=== PATIENT | male | born 1945 | race Caucasian/White ===

== ENCOUNTER 2024-10-18 07:46 | Inpatient (IN) ==
--- NOTE | 2024-10-18 08:05 | Emergency Department Note ---
Impression & Plan Bilateral leg weakness, Elevated blood pressure reading ED Provider Note NAME: CARLI HALEY AGE: 79 SEX: M : 1945 ARRIVES VIA: Ambulance INFORMANT: Patient ED PROVIDER(S): Anson Leiva DO CHIEF COMPLAINT: Weakness in his bilateral legs HPI: Patient is a 79-year-old male who presents to the ER for weakness mainly in his bilateral legs. He notes this started last night around 830. He noticed some trouble walking and getting around. He was not dizzy or lightheaded. He denies any head pain or neck pain. No change or loss of vision. No chest pain or shortness of breath. No cough or congestion. No dysuria, urgency or frequency. No focal weakness in 1 leg or arm. He notes his legs just feel weaker than usual. He denies any back pain. No other exacerbating or remitting factors. He called EMS as he did not feel he could walk. ADDITIONAL HISTORY OBTAINED: Per HPI Chronic Medical/Social Conditions Affecting Care: Per HPI PAST MEDICAL HISTORY:See Below PAST SURGICAL HISTORY:See Below FAMILY HISTORY:See Below SOCIAL HISTORY:See Below HOME MEDICATIONS:See Below ALLERGIES:See Below VITALS:See Below PHYSICAL EXAMINATION: GENERAL: Sitting up in bed, alert, well appearing, well nourished, no distress, non-toxic EYE EXAM: normal conjunctiva. PERRL and EOM's grossly intact. OROPHARYNX: no exudate, no erythema, lips, buccal mucosa, and tongue normal and mucous membranes are moist NECK: supple, no nuchal rigidity, no adenopathy, non-tender LUNGS: Clear to auscultation. Normal chest wall mechanics HEART: no murmurs, S1 normal and S2 normal ABDOMEN: abdomen soft, non-tender, normo-active bowel sounds, no masses, no rebound or guarding. BACK: Back is symmetrical on inspection and there is no deformity, no midline tenderness, no CVA tenderness. UPPER EXTREMITIES: upper extremities are grossly normal. LOWER EXTREMITIES: Flexion and extension of the hips, knees, ankles, and EHL 5/5 bilaterally. Gross sensation is intact. DPs are 2/4 bilateral. Patellar and Achilles reflexes are 2/4 bilateral NEURO EXAM: Normal sensorium, cranial nerves II-XII intact, normal speech, no weakness of arms, no weakness of legs. No drift. Finger to nose intact. Gross sensation intact. Oeno-lx-jlgn intact. Rapid alternating movements of upper extremities intact. MEDICAL DECISION MAKING: Patient is a 79-year-old male who presents ER for weakness in the bilateral lower extremities. IV was established and blood work was obtained. Labs show no significant leukocytosis or anemia. BMP along LFTs bilirubin and mag were unremarkable. UA was clean. Tox was negative. Viral panel negative. Chest x- ray and CT of the head was negative. Patient was ambulated and he had significant difficulty consequently case was discussed with the hospitalist for further evaluation management treatment. He has no back pain. Nothing to suggest cauda equina. He was given IV fluids while in the ER. Consults/Care Managements Discussions: Per [facility] Triage Nursing notes reviewed. Limited review of prior medical records performed Vital Signs: reviewed and remarkable for no significant abnormalities Differential diagnosis: Infection, dehydration, metabolic abnormality, hypo/hyperglycemia, electrolyte disturbance, anemia, hypoxia, cardiac sources, intracerebral event, toxicologic, neurologic, as well as other pathologies. ER treatment provided: See below Diagnostics interpreted by me include EKG and cardiac monitoring as listed below: -Cardiac Monitoring: An order was placed for continuous cardiac monitoring. The monitor shows a rate of with [] rhythm. -ECG: Sinus rhythm rate of 73 PVCs present QTc 456 -Laboratory studies:Interpreted by me as stated above in MDM and shown below. Imaging studies: Xrays: As interpreted by me: Portable AP upright 1 view of the chest shows no focal infiltrate CTs show: CT of the head was negative per radiology Procedures:none Critical Care: None Past Med/Surg History Problem List (Updated 10/18/24 @ 13:19 by Anson Leiva DO) Elevated blood pressure reading (Acute) Alcohol use disorder Bilateral leg weakness (Acute) Medical History (Updated 10/18/24 @ 13:19 by Anson Leiva DO) Tobacco use Quit 2023, 75 pack-years History of diverticulitis Surgical History (Updated 10/18/24 @ 11:09 by Eric Lewis MD) History of cataract surgery Bilateral History of appendectomy Social History Smoking Status: Former smoker Tobacco Type: Cigarettes Feels Safe at Home: Yes Allergies Allergies Allergy/AdvReac Type Severity Reaction Status Date / Time No Known Allergies Allergy Unverified 10/18/24 10:16 Home Meds Home Medications Medication Instructions Recorded Confirmed ibuprofen 200 mg tablet (Advil) 400 mg PO Q6H PRN Pain 01/05/24 10/18/24 Results & Data (ED) Vital Signs Vital Signs - 24 hr 10/18/24 07:46 10/18/24 07:59 10/18/24 08:02 Temperature 36.7 C Temperature Source Oral Pulse Rate 76 74 76 Pulse Rate from SpO2 Sensor 71 Pulse Rhythm Regular Respiratory Rate 21 23 21 Respiratory Effort / Characteristics Non-Labored Respiratory Depth Normal Respiratory Pattern Regular Blood Pressure 183/97 H 183/97 H Blood Pressure Mean 125 148 Pulse Oximetry 94 93 94 Oxygen Delivery Method Room Air Room Air Sepsis Recent Fever Within 48 Hours No Sepsis New/Unexplained Change in Mental Status N/A Sepsis Action Taken by Nursing No Action Required 10/18/24 08:12 10/18/24 08:24 10/18/24 08:33 Temperature Temperature Source Pulse Rate 80 67 73 Pulse Rate from SpO2 Sensor 68 70 Pulse Rhythm Respiratory Rate 17 17 Respiratory Effort / Characteristics Respiratory Depth Respiratory Pattern Blood Pressure 191/98 H 171/99 H Blood Pressure Mean 129 123 Pulse Oximetry 92 92 Oxygen Delivery Method Sepsis Recent Fever Within 48 Hours Sepsis New/Unexplained Change in Mental Status Sepsis Action Taken by Nursing 10/18/24 09:30 10/18/24 10:00 10/18/24 10:30 Temperature Temperature Source Pulse Rate 83 75 75 Pulse Rate from SpO2 Sensor 75 78 Pulse Rhythm Respiratory Rate 17 18 20 Respiratory Effort / Characteristics Respiratory Depth Respiratory Pattern Blood Pressure 175/91 H 157/78 H 164/98 H Blood Pressure Mean 119 104 120 Pulse Oximetry 92 91 91 Oxygen Delivery Method Sepsis Recent Fever Within 48 Hours Sepsis New/Unexplained Change in Mental Status Sepsis Action Taken by Nursing 10/18/24 10:57 10/18/24 11:36 10/18/24 12:01 Temperature Temperature Source Pulse Rate 78 72 80 Pulse Rate from SpO2 Sensor 81 Pulse Rhythm Respiratory Rate 25 H 15 18 Respiratory Effort / Characteristics Respiratory Depth Respiratory Pattern Blood Pressure 181/102 H 186/116 H 177/81 H Blood Pressure Mean 128 139 126 Pulse Oximetry 91 92 Oxygen Delivery Method Sepsis Recent Fever Within 48 Hours Sepsis New/Unexplained Change in Mental Status Sepsis Action Taken by Nursing 10/18/24 12:30 Temperature Temperature Source Pulse Rate 80 Pulse Rate from SpO2 Sensor Pulse Rhythm Respiratory Rate Respiratory Effort / Characteristics Respiratory Depth Respiratory Pattern Blood Pressure Blood Pressure Mean Pulse Oximetry Oxygen Delivery Method Sepsis Recent Fever Within 48 Hours Sepsis New/Unexplained Change in Mental Status Sepsis Action Taken by Nursing Laboratory Data 10/18/24 08:00 10/18/24 08:00 Lab Results 10/18/24 10/18/24 10/18/24 Range/Units 08:00 08:10 09:40 WBC 6.92 (4.8-10.8) K/ul RBC 4.58 L (4.70-6.10) M/uL Hgb 16.0 (14.0-18.0) g/dl Hct 44.6 (42.0-52.0) % MCV 97.4 (80.0-100.0) fL MCH 34.9 H (25.0-34.0) pg MCHC 35.9 (32.0-36.0) g/dL RDW Std Deviation 45.2 (36.4-46.3) fL RDW Coeff of Cortez 12.7 (11.5-14.5) % Plt Count 218 (130-400) K/uL MPV 8.9 L (9.4-12.4) fL Immature Gran % (Auto) 0.4 % Neut % (Auto) 76.1 % Lymph % (Auto) 16.2 % Mcleod % (Auto) 5.3 % Eos % (Auto) 1.7 % Baso % (Auto) 0.3 % Neut # (Auto) 5.26 (1.40-6.50) K/uL Lymph # (Auto) 1.12 L (1.20-3.40) K/uL Mcleod # (Auto) 0.37 (0.11-0.59) K/uL Eos # (Auto) 0.12 (0.00-0.50) K/uL Baso # (Auto) 0.02 (0.00-0.20) K/uL Immature Gran # (Auto) 0.03 (0.01-0.20) K/uL Sodium 138 (136-145) mmol/L Potassium 4.0 (3.5-5.1) mmol/L Chloride 104 (98-107) mmol/L Carbon Dioxide 26 (21-32) mmol/L Anion Gap 8 (3-11) BUN 15 (6-23) mg/dl Creatinine 0.91 (0.6-1.4) mg/dl Est Cr Clr Drug Dosing 87.3 ml/min eGFR 86.81 BUN/Creatinine Ratio 16.5 (10-20) Glucose 112 H (70-99(Fasting)) mg/dl Calcium 9.5 (8.6-10.3) mg/dl Magnesium 2.0 (1.7-2.4) mg/dl Total Bilirubin 0.7 (0.2-1.0) mg/dl AST 19 (13-39) U/L ALT 18 (7-52) U/L Alkaline Phosphatase 60 (34-104) U/L Total Protein 7.2 (6.0-8.3) gm/dl Albumin 4.2 (3.4-5.0) gm/dl Globulin 3.0 (2.5-4.0) gm/dl Albumin/Globulin Ratio 1.4 (0.9-2) Lipase 30 (11-82) U/L Vitamin B12 (180-914) pg/ml TSH 5.242 H (0.300-4.500) uIu/ml Free T4 0.83 (0.61-1.60) ng/dl Urine Color Yellow Urine Appearance Clear (Clear) Urine pH 5.5 (4.5-7.5) Ur Specific [place] 1.020 (1.000-1.030) Urine Protein Negative (Negative) Urine Glucose (UA) Negative (Negative) Urine Ketones 1+ H (Negative) Urine Blood Negative (Negative) Urine Nitrite Negative (Negative) Urine Bilirubin Negative (Negative) Urine Urobilinogen Negative (Negative) Ur Leukocyte Esterase Negative (Negative) Urine Opiates Screen Neg (Neg) Ur Methadone, Qual Neg (Neg) Urine Fentanyl Screen Neg (Neg) Urine Barbiturates Neg (Neg) Ur Phencyclidine (PCP) Neg (Neg) U Amphetamin/Meth Scrn Neg (Neg) MDMA (Ecstasy) Screen Neg (Neg) U Benzodiazepines Scrn Neg (Neg) Ur Cocaine Metabolite Neg (Neg) U Marijuana (THC) Screen Neg (Neg) Adenovirus (PCR) Not Detected (NotDetected) B. pertussis DNA (PCR) Not Detected (NotDetected) B.parapertussis DNA PCR Not Detected (NotDetected) C. pneumoniae DNA (PCR) Not Detected (NotDetected) Coronavirus OC43 (PCR) Not Detected (NotDetected) Coronavirus HKU1 (PCR) Not Detected (NotDetected) Coronavirus 229E (PCR) Not Detected (NotDetected) SARS-CoV-2 (PCR) Not Detected (NotDetected) Coronavirus NL63 (PCR) Not Detected (NotDetected) Human Metapneumovir PCR Not Detected (NotDetected) Influenza Type A (PCR) Not Detected (NotDetected) Influenza Type B (PCR) Not Detected (NotDetected) M. pneumoniae (PCR) Not Detected (NotDetected) Parainfluenza 1 (PCR) Not Detected (NotDetected) Parainfluenza 2 (PCR) Not Detected (NotDetected) Parainfluenza 3 (PCR) Not Detected (NotDetected) Parainfluenza 4 (PCR) Not Detected (NotDetected) RSV (PCR) Not Detected (NotDetected) Entero/Rhino (PCR) Not Detected (NotDetected) 10/18/24 Range/Units 11:18 WBC (4.8-10.8) K/ul RBC (4.70-6.10) M/uL Hgb (14.0-18.0) g/dl Hct (42.0-52.0) % MCV (80.0-100.0) fL MCH (25.0-34.0) pg MCHC (32.0-36.0) g/dL RDW Std Deviation (36.4-46.3) fL RDW Coeff of Cortez (11.5-14.5) % Plt Count (130-400) K/uL MPV (9.4-12.4) fL Immature Gran % (Auto) % Neut % (Auto) % Lymph % (Auto) % Mcleod % (Auto) % Eos % (Auto) % Baso % (Auto) % Neut # (Auto) (1.40-6.50) K/uL Lymph # (Auto) (1.20-3.40) K/uL Mcleod # (Auto) (0.11-0.59) K/uL Eos # (Auto) (0.00-0.50) K/uL Baso # (Auto) (0.00-0.20) K/uL Immature Gran # (Auto) (0.01-0.20) K/uL Sodium (136-145) mmol/L Potassium (3.5-5.1) mmol/L Chloride (98-107) mmol/L Carbon Dioxide (21-32) mmol/L Anion Gap (3-11) BUN (6-23) mg/dl Creatinine (0.6-1.4) mg/dl Est Cr Clr Drug Dosing ml/min eGFR BUN/Creatinine Ratio (10-20) Glucose (70-99(Fasting)) mg/dl Calcium (8.6-10.3) mg/dl Magnesium (1.7-2.4) mg/dl Total Bilirubin (0.2-1.0) mg/dl AST (13-39) U/L ALT (7-52) U/L Alkaline Phosphatase (34-104) U/L Total Protein (6.0-8.3) gm/dl Albumin (3.4-5.0) gm/dl Globulin (2.5-4.0) gm/dl Albumin/Globulin Ratio (0.9-2) Lipase (11-82) U/L Vitamin B12 279 (180-914) pg/ml TSH (0.300-4.500) uIu/ml Free T4 (0.61-1.60) ng/dl Urine Color Urine Appearance (Clear) Urine pH (4.5-7.5) Ur Specific [place] (1.000-1.030) Urine Protein (Negative) Urine Glucose (UA) (Negative) Urine Ketones (Negative) Urine Blood (Negative) Urine Nitrite (Negative) Urine Bilirubin (Negative) Urine Urobilinogen (Negative) Ur Leukocyte Esterase (Negative) Urine Opiates Screen (Neg) Ur Methadone, Qual (Neg) Urine Fentanyl Screen (Neg) Urine Barbiturates (Neg) Ur Phencyclidine (PCP) (Neg) U Amphetamin/Meth Scrn (Neg) MDMA (Ecstasy) Screen (Neg) U Benzodiazepines Scrn (Neg) Ur Cocaine Metabolite (Neg) U Marijuana (THC) Screen (Neg) Adenovirus (PCR) (NotDetected) B. pertussis DNA (PCR) (NotDetected) B.parapertussis DNA PCR (NotDetected) C. pneumoniae DNA (PCR) (NotDetected) Coronavirus OC43 (PCR) (NotDetected) Coronavirus HKU1 (PCR) (NotDetected) Coronavirus 229E (PCR) (NotDetected) SARS-CoV-2 (PCR) (NotDetected) Coronavirus NL63 (PCR) (NotDetected) Human Metapneumovir PCR (NotDetected) Influenza Type A (PCR) (NotDetected) Influenza Type B (PCR) (NotDetected) M. pneumoniae (PCR) (NotDetected) Parainfluenza 1 (PCR) (NotDetected) Parainfluenza 2 (PCR) (NotDetected) Parainfluenza 3 (PCR) (NotDetected) Parainfluenza 4 (PCR) (NotDetected) RSV (PCR) (NotDetected) Entero/Rhino (PCR) (NotDetected) Administered Medications Discontinued Medications Sodium Chloride (Nss) 1,000 mls @ 999 mls/hr IV .Q1H1M ONE Stop: 10/18/24 09:02 Last Infusion: 10/18/24 09:19 Dose: Infused Documented By: Admin: 10/18/24 08:13 Dose: 999 mls/hr Documented By: JESSI Thiamine HCl 500 mg/ Sodium (Chloride) 55 mls @ 210 mls/hr IV NOW STA Stop: 10/18/24 11:54 Last Infusion: 10/18/24 12:16 Dose: Infused Documented By: Admin: 10/18/24 12:00 Dose: 210 mls/hr Documented By: JESSI Imaging Data Radiologist's Impression: Head CT 10/18/24 08:02 CT head/brain wo con CLINICAL HISTORY: weakness. TECHNIQUE: Multiple axial CT images of the head were obtained without contrast. A dose lowering technique was utilized adhering to the principles of ALARA. Sagittal and coronal reconstructions were done. CT DOSE: 625.8 mGy.cm COMPARISON: None FINDINGS: There is no intra-axial or extra-axial fluid collection, hemorrhage, or mass. The ventricular system and sulci are pronounced. There is no midline shift. There is prominent low attenuation in the central nitin and in the periventricular white matter extending into the jaeger radiata. The bone windows are negative. IMPRESSION: No acute intracranial process identified. Senescent atrophy and small vessel insufficiency changes are noted. MRI is more sensitive in detection of a recent stroke. ACT 112: Negative or not required by law. The above report was generated using voice recognition software. It may contain grammatical, syntax or spelling errors. Electronically signed by: Nery Box M.D. 10/18/2024 9:54 AM Chest X-Ray 10/18/24 10:52 XR chest 1V portable CLINICAL HISTORY: hypoxia, generalized weakness COMPARISON STUDY: None FINDINGS: Heart size and pulmonary vasculature are normal. No effusion, consolidation, or pneumothorax. IMPRESSION: No pneumonia seen. ACT 112: Negative or not required by law. Electronically signed by: Octaviano Marquez M.D. 10/18/2024 11:31 AM Discharge Plan Visit Data Chief Complaint: Leg Weakness, Bilateral Stated Complaint: LEG WEAKNESS, UNABLE TO AMBULATE ED Provider: Anson Leiva Discharge Problem: Bilateral leg weakness, Elevated blood pressure reading Forms Stand Alone Forms: [facility] Prescriptions Prescriptions: No Action ibuprofen [Advil] 200 mg Tablet 400 mg PO Q6H PRN (Reason: Pain) Referrals Referrals: PCP,NO [Primary Care Provider] -
[2024-10-18] MEDS: SODIUM CHLORIDE 0.9% 1,000 ML IV ONE (08:13)
[2024-10-18 08:22] LABS: Basophils # (auto) 0.02 K/uL (0.00-0.20); Basophils % (auto) 0.3 %; Eosinophils # (auto) 0.12 K/uL (0.00-0.50); Eosinophils % (auto) 1.7 %; Hematocrit (blood only) 44.6 % (42.0-52.0); Immature Granulocytes # (auto) 0.03 K/uL (0.01-0.20); Immature Granulocytes % (auto) 0.4 %; Lymphocytes # (auto) 1.12 K/uL (1.20-3.40); Lymphocytes % (auto) 16.2 %; Mean Corpuscular Hemoglobin 34.9 pg (25.0-34.0); Mean Corpuscular Hgb Conc 35.9 g/dL (32.0-36.0); Mean Corpuscular Volume 97.4 fL (80.0-100.0); Mean Platelet Volume 8.9 fL (9.4-12.4); Monocytes # (auto) 0.37 K/uL (0.11-0.59); Monocytes % (auto) 5.3 %; Neutrophils # (auto) 5.26 K/uL (1.40-6.50); Neutrophils % (auto) 76.1 %; Platelet Count 218 K/uL (130-400); RDW Coefficient of Variation 12.7 % (11.5-14.5); RDW Standard Deviation 45.2 fL (36.4-46.3); Red Blood Count 4.58 M/uL (4.70-6.10); White Blood Count 6.92 K/ul (4.8-10.8)
[2024-10-18 08:35] LABS: Albumin Globulin Ratio 1.4 (0.9-2); Albumin Level 4.2 gm/dl (3.4-5.0); BUN Creatinine Ratio 16.5 (10-20); Bilirubin,Total 0.7 mg/dl (0.2-1.0); Calcium 9.5 mg/dl (8.6-10.3); Creatinine Clr Calc Pharmacy 87.3 ml/min; Total Protein 7.2 gm/dl (6.0-8.3)
[2024-10-18 09:32] LABS: Adenovirus PCR Not Detected (NotDetected); Bordetella parapertussis PCR Not Detected (NotDetected); Bordetella pertussis PCR Not Detected (NotDetected); Chlamydia pneumoniae PCR Not Detected (NotDetected); Coronavirus 229E PCR Not Detected (NotDetected); Coronavirus CoV-2 (COVID19)PCR Not Detected (NotDetected); Coronavirus HKU1 PCR Not Detected (NotDetected); Coronavirus NL63 PCR Not Detected (NotDetected); Coronavirus OC43PCR Not Detected (NotDetected); Human Metapneumovirus PCR Not Detected (NotDetected); Influenza A PCR Not Detected (NotDetected); Influenza B PCR Not Detected (NotDetected); Mycoplasma pneumoniae PCR Not Detected (NotDetected); Parainfluenza Virus 1 PCR Not Detected (NotDetected); Parainfluenza Virus 2 PCR Not Detected (NotDetected); Parainfluenza Virus 3 PCR Not Detected (NotDetected); Parainfluenza Virus 4 PCR Not Detected (NotDetected); Respiratory Syncytial VirusPCR Not Detected (NotDetected); Rhinovirus/Enterovirus PCR Not Detected (NotDetected)
--- NOTE | 2024-10-18 09:55 | CT Scan Report ---
CT head/brain wo con CLINICAL HISTORY: weakness. TECHNIQUE: Multiple axial CT images of the head were obtained without contrast. A dose lowering tech nique was utilized adhering to the principles of ALARA. Sagittal and coronal reconstructions were don e. CT DOSE: 625.8 mGy.cm COMPARISON: None FINDINGS: There is no intra-axial or extra-axial fluid collection, hemorrhage, or mass. The ventricul ar system and sulci are pronounced. There is no midline shift. There is prominent low attenuation in the central nitin and in the periventricular white matter extending into the jaeger radiata. The bone windows are negative. IMPRESSION: No acute intracranial process identified. Senescent atrophy and small vessel insufficienc y changes are noted. MRI is more sensitive in detection of a recent stroke. ACT 112: Negative or not required by law. The above report was generated using voice recognition software. It may contain grammatical, syntax o r spelling errors. Electronically signed by: Nery Box M.D. 10/18/2024 9:54 AM
[2024-10-18 10:15] LABS: Appearance Urine Clear (Clear); Bilirubin Urine Negative (Negative); Blood Urine Negative (Negative); Color Urine Yellow; Glucose Urine UA Negative (Negative); Ketones Urine 1+ (Negative); Leukocyte Esterase Urine Negative (Negative); Nitrite Urine Negative (Negative); Protein Urine Negative (Negative); Urobilinogen Urine Negative (Negative); pH Urine 5.5 (4.5-7.5)
--- NOTE | 2024-10-18 11:13 | History & Physical Report ---
Date of Service October 18, 2024 Assessment & Plan (1) Bilateral leg weakness: Plan: No cause found on ER workup with normal basic labs and CT head without acute changes. Brisk reflexes on exam therefore do not suspect lower motor neuron issue such as GBS Objectively he is exam is relatively benign with normal power except for left ankle dorsi and plantarflexion, relatively normal coordination however significant shuffling gait causing instability on standing. MRI brain with and without contrast to assess for PRES/cerebellar stroke B1 and B12 level taken - no nystagmus or encephalopathy to suggest Wernicke's however given chronic alcohol use, little harm and potential benefit we will treat for this with high-dose thiamine TSH and magnesium level added Urine drug profile If no definitive etiology with above workup recommend consulting neurology PT/OT evals (2) Alcohol use disorder: Plan: Monitor for withdrawal - no current signs currently, last alcohol drink 10/17 (3) Elevated blood pressure reading: Plan: I suspect this is chronic and at his baseline since he does not seek routine medical care Will hold off on treatment currently unless sBP > 200 or dBP > 110 or PRES on MRI but he should follow up with a PCP for management of this Plan VTE prophylaxis - Lovenox 40 mg subcu daily Diet - heart healthy Disposition - admit to [facility] Admission and Anticipated Discharge Date Admission Date: October 18, 2024 History of Present Illness Chief Complaint: Bilateral lower extremity weakness Primary Care Provider: NO PCP Chetan Valdez is a 79 year old ambidextrous male who presents to the ER with bilateral leg weakness. He does not have a primary care doctor or seek routine care. He started having bilateral leg weakness yesterday at 6 to 8 PM. He thought his legs " fell asleep" last night but was able to make it upstairs however it was not easy. At 4 AM when he got up he could not walk without fall he had a to the bathroom trying to hold onto the sides of the hallway. He feels he is having more of a weakness in his legs rather than coordination problem. No vertigo. No upper extremity weakness or loss of coordination. No changes to vision, speech, hearing. No numbness or pain in his legs. No back pain. No headache, neck stiffness/pain, fever, chills, new respiratory, gastrointestinal or urinary symptoms. He has a chronic productive cough and shortness of breath on exertion which has improved since stopping smoking. He previously smoked 1/2 packs a year for 50 years but quit in the fall 2023. He also drinks alcohol daily, currently 3 glasses of wine per day. He cut back last year and previously was a much heavy drinker with several shots of whiskey a day. He has not had multiple days without alcohol since the . No prior history of withdrawal. He denies any current tremors, anxiety, agitation. His last drink was wine last night. Allergies Allergy/AdvReac Type Severity Reaction Status Date / Time No Known Allergies Allergy Unverified 10/18/24 10:16 Home Medications Medication Instructions Recorded Confirmed Type ibuprofen 200 mg tablet (Advil) 400 mg PO Q6H PRN Pain 01/05/24 10/18/24 History Past Med/Surg History Problem List (Updated 10/18/24 @ 11:49 by Eric Lewis MD) Elevated blood pressure reading Alcohol use disorder Bilateral leg weakness Medical History (Updated 10/18/24 @ 11:49 by Eric Lewis MD) Tobacco use Quit 2023, 75 pack-years History of diverticulitis Surgical History (Updated 10/18/24 @ 11:09 by Eric Lewis MD) History of cataract surgery Bilateral History of appendectomy Social History Smoking Status: Former smoker Tobacco Type: Cigarettes Feels Safe at Home: Yes Review of Systems Review of Systems: All systems reviewed & are unremarkable except as noted in HPI & below Physical Exam Constitutional: WD/WN, vitals as above ENMT: external ear and nose normal, oropharynx normal Respiratory: normal respiratory effort, lungs clear to auscultation + cough Cardiovascular: Rate/Rhythm: regular rate and + irregularly irregular Heart Sounds: no murmur Vessels: posterior tibial pulses present and dorsalis pedis pulses present Extremities: normal capillary refill; no calf tenderness and no pedal edema Gastrointestinal (Abdomen): normal bowel sounds, soft, nontender, no hepatosplenomegaly Neurologic: moves all extremities, + focal motor deficit (4/5 left dorsi/plantarflexion) and awake; not confused Speech / Cognition: normal speech Motor/Sensory: no tremor and no pronator drift Cranial Nerves: PERRL, EOM intact bilaterally, normal facial strength, tongue midline, able to rotate head bilaterally, able to elevate shoulders bilaterally, no nystagmus and symmetric palate elevation Gait: + shuffling gait Coordination: normal miqgan-rw-[id number] test and normal awob-fv-tjov test Psychiatric: A+Ox3, euthymic affect Results & Data Results & Data Vital Signs (Past 12 Hours) Vital Signs Temp Pulse Resp BP Pulse Ox O2 Del Method 10/18/24 10:30 75 20 164/98 H 91 10/18/24 10:00 75 18 157/78 H 91 10/18/24 09:30 83 17 175/91 H 92 10/18/24 08:33 73 17 171/99 H 92 10/18/24 08:24 67 10/18/24 08:12 80 17 191/98 H 92 10/18/24 08:02 76 21 94 Room Air 10/18/24 07:59 74 23 183/97 H 93 10/18/24 07:46 36.7 C 76 21 183/97 H 94 Room Air Laboratory Results Abnormal lab results 10/18/24 10/18/24 Range/Units 08:00 09:40 RBC 4.58 L (4.70-6.10) M/uL MCH 34.9 H (25.0-34.0) pg MPV 8.9 L (9.4-12.4) fL Lymph # (Auto) 1.12 L (1.20-3.40) K/uL Glucose 112 H (70-99(Fasting)) mg/dl Urine Ketones 1+ H (Negative) Diagnostic Findings CT head/brain wo con CLINICAL HISTORY: weakness. TECHNIQUE: Multiple axial CT images of the head were obtained without contrast. A dose lowering technique was utilized adhering to the principles of ALARA. Sagittal and coronal reconstructions were done. CT DOSE: 625.8 mGy.cm COMPARISON: None FINDINGS: There is no intra-axial or extra-axial fluid collection, hemorrhage, or mass. The ventricular system and sulci are pronounced. There is no midline shift. There is prominent low attenuation in the central nitin and in the periventricular white matter extending into the jaeger radiata. The bone windows are negative. IMPRESSION: No acute intracranial process identified. Senescent atrophy and small vessel insufficiency changes are noted. MRI is more sensitive in detection of a recent stroke. Medications Administered ER medications given: Normal saline 1 L bolus ECG Rate (beats per minute): 73 Rhythm: normal sinus Findings: + other (Premature supraventricular complexes) and + PVC Comparison ECG Date: from (January 05, 2024) Change: the following changes noted (Premature supraventricular complexes now present) Code Status & VTE Plan Code Status Full VTE Prophylaxis Plan VTE Prophylaxis will be ordered: Yes PG Care Time/CCT Total # of Minutes Spent Total Time Spent with Patient: Total time spent is greater than 50% in coordination of care (as documented) at patient's floor/unit and/or counseling patient: Coding Level of Care Code 36236 INT INP/OBS CARE 3/75MIN Diagnoses Bilateral leg weakness R29.898 Alcohol use disorder F10.90 Elevated blood pressure reading R03.0
--- NOTE | 2024-10-18 11:33 | XRay Report ---
XR chest 1V portable CLINICAL HISTORY: hypoxia, generalized weakness COMPARISON STUDY: None FINDINGS: Heart size and pulmonary vasculature are normal. No effusion, consolidation, or pneumothora x. IMPRESSION: No pneumonia seen. ACT 112: Negative or not required by law. Electronically signed by: Octaviano Marquez M.D. 10/18/2024 11:31 AM
[2024-10-18] MEDS: THIAMINE HCL 500 MG in SODIUM CHLORIDE 0.9% 50 ML IV STA (12:00)
[2024-10-18 12:20] LABS: Thyroid Stimulating Hormone 5.242 uIu/ml (0.300-4.500)
[2024-10-18 12:45] LABS: Amphetamines+Metham, Urine Neg (Neg); Barbiturates, Urine Neg (Neg); Benzodiazepine, Urine Neg (Neg); Cocaine, Urine Neg (Neg); Fentanyl, Urine Neg (Neg); MDMA (Ecstacy), Urine Neg (Neg); Marijuana, Urine Neg (Neg); Methadone, Urine Neg (Neg); Opiate, Urine Neg (Neg); Phencyclidine, Urine Neg (Neg)
[2024-10-18 12:55] LABS: T4 Free Thyroxine 0.83 ng/dl (0.61-1.60)
[2024-10-18] MEDS: GADOBUTROL 65ML VIAL IV ONE (13:50)
--- NOTE | 2024-10-18 14:04 | Magnetic Resonance Report ---
MR brain wo/w con CLINICAL HISTORY: bilateral lower extremity weakness and shuff gait TECHNIQUE: Multiplanar multisequence MRI of the brain for and after 10 cc gadolinium IV. COMPARISON STUDY: CT of 10/18/2024 FINDINGS: There is motion artifact. There is a tiny focus of restricted diffusion at the upper right parietal lobe near the midline series 4 image 22. There are small areas of restricted diffusion in th e right periventricular white matter and upper right basal ganglia. Findings are consistent with acut e infarctions. No mass effect, midline shift, or hydrocephalus. There is mild diffuse cerebral volume loss. There is moderate patchy increased FLAIR signal intensity, nonspecific but usually represents chronic small vessel ischemic change. No abnormal enhancement seen at the brain. IMPRESSION: 1. Multiple small acute right-sided infarctions. 2. Otherwise as described. ACT 112: Negative or not required by law. Electronically signed by: Octaviano Marquez M.D. 10/18/2024 2:02 PM
[2024-10-18] MEDS ORDERED: MELATONIN 3 MG TAB PO PRN (19:47)
[2024-10-18] MEDS: ENOXAPARIN INJ 40 MG/0.4 ML SYR SQ SCH (20:52)
[2024-10-18] MEDS: THIAMINE HCL 500 MG in SODIUM CHLORIDE 0.9% 50 ML IV SCH (20:52)
[2024-10-18] MEDS ORDERED: PHARMACIST DISCHARGE MED REC CONSULT PRN (21:18)
[2024-10-18] MEDS: ASPIRIN 81 MG CHEW PO STA (21:34)
[2024-10-18] MEDS: CLOPIDOGREL BISULFATE 300 MG TAB PO STA (21:37)
[2024-10-18] MEDS: OPTIRAY 320 125ml IV ONE (22:51)
[2024-10-18] MEDS: ATORVASTATIN 40 MG TAB PO SCH (22:59)
--- NOTE | 2024-10-19 01:01 | CT Scan Report ---
Exam(s): CTA NECK With Contrast IV Amt: 119 cc opti 320 EXAM: CT Angiography Neck With Intravenous Contrast CLINICAL HISTORY: Reason for exam: Acute CVA. TECHNIQUE: Routine carotid CT angiography protocol was performed with intravenous contrast. NASCET criteria using the distal ICAs for comparison were used for evaluation of stenoses. CTDI is 14.1 mGy and DLP is 645.72 mGy-cm. Automated exposure control was utilized for the study. A dose lowering technique was utilized adhering to the principles of ALARA. MIP reconstructed images were created and reviewed. CONTRAST: Patient received 119 cc opti 320 of IV contrast COMPARISON: None. FINDINGS: VASCULATURE: Right common carotid artery: Unremarkable. No occlusion or significant stenosis. No dissection. Right internal carotid artery: Unremarkable. Extracranial segment is patent with no occlusion or significant stenosis. No dissection. Right external carotid artery: Unremarkable. No occlusion. Right vertebral artery: Unremarkable. No occlusion or significant stenosis. No dissection. Left common carotid artery: Unremarkable. No occlusion or significant stenosis. No dissection. Left internal carotid artery: Unremarkable. Extracranial segment is patent with no occlusion or significant stenosis. No dissection. Left external carotid artery: Unremarkable. No occlusion. Left vertebral artery: Unremarkable. No occlusion or significant stenosis. No dissection. NECK: Bones/joints: There is a critical spinal canal stenosis at C5-6. Recommend MRI of the cervical spine to evaluate for myelopathy. No acute fracture. Extensive dental caries with periapical lucencies about tooth #14, 18, 19, 30 and 31 concerning for periapical abscesses. Recommend dental consult. Soft tissues: Prominent mediastinal lymph nodes. Lung apices: Advanced centrilobular emphysematous changes with bronchitis, which may be of infectious or inflammatory etiologies. CAROTID STENOSIS REFERENCE USING NASCET CRITERIA: % ICA stenosis = (1 - narrowest ICA diameter/diameter of distal cervical ICA) x 100. Mild - <50% stenosis. Moderate - 50-69% stenosis. Severe - 70-94% stenosis. Near occlusion - 95-99% stenosis. Occluded - 100% stenosis. IMPRESSION: Negative CTA neck. Electronically signed by: Phuong Croft MD 10/19/24 01:00 AM
--- NOTE | 2024-10-19 01:05 | CT Scan Report ---
Exam(s): CTA HEAD With Contrast IV Amt: 119 cc opti 320 EXAM: CT Angiography Head With Intravenous Contrast CLINICAL HISTORY: Reason for exam: Acute CVA. TECHNIQUE: Axial computed tomographic angiography images of the head with intravenous contrast. CTDI is 14.1 mGy and DLP is 645.72 mGy-cm. Automated exposure control was utilized for the study. A dose lowering technique was utilized adhering to the principles of ALARA. MIP reconstructed images were created and reviewed. CONTRAST: Patient received 119 cc opti 320 of IV contrast COMPARISON: No relevant prior studies available. FINDINGS: The dural venous sinuses are patent. Right internal carotid artery: No acute findings. Intracranial segment is patent with no significant stenosis. No aneurysm. Right anterior cerebral artery: Unremarkable. No occlusion or significant stenosis. No aneurysm. Right middle cerebral artery: Unremarkable. No occlusion or significant stenosis. No aneurysm. Right posterior cerebral artery: Unremarkable. No occlusion or significant stenosis. No aneurysm. Right vertebral artery: Unremarkable as visualized. Left internal carotid artery: No acute findings. Intracranial segment is patent with no significant stenosis. No aneurysm. Left anterior cerebral artery: Unremarkable. No occlusion or significant stenosis. No aneurysm. Left middle cerebral artery: Unremarkable. No occlusion or significant stenosis. No aneurysm. Left posterior cerebral artery: Unremarkable. No occlusion or significant stenosis. No aneurysm. Left vertebral artery: Unremarkable as visualized. Basilar artery: Unremarkable. No occlusion or significant stenosis. No aneurysm. IMPRESSION: Negative CT angiogram of the head. Electronically signed by: Phuong Croft MD 10/19/24 01:04 AM
[2024-10-19 06:55] LABS: Basophils # (auto) 0.04 K/uL (0.00-0.20); Basophils % (auto) 0.4 %; Eosinophils # (auto) 0.19 K/uL (0.00-0.50); Eosinophils % (auto) 2.1 %; Hematocrit (blood only) 41.8 % (42.0-52.0); Hemoglobin 15.2 g/dl (14.0-18.0); Immature Granulocytes # (auto) 0.04 K/uL (0.01-0.20); Immature Granulocytes % (auto) 0.4 %; Lymphocytes # (auto) 1.67 K/uL (1.20-3.40); Lymphocytes % (auto) 18.4 %; Mean Corpuscular Hemoglobin 35.6 pg (25.0-34.0); Mean Corpuscular Hgb Conc 36.4 g/dL (32.0-36.0); Mean Corpuscular Volume 97.9 fL (80.0-100.0); Monocytes # (auto) 0.64 K/uL (0.11-0.59); Neutrophils # (auto) 6.52 K/uL (1.40-6.50); Neutrophils % (auto) 71.7 %; Platelet Count 216 K/uL (130-400); RDW Coefficient of Variation 12.8 % (11.5-14.5); RDW Standard Deviation 45.6 fL (36.4-46.3); Red Blood Count 4.27 M/uL (4.70-6.10)
[2024-10-19 07:16] LABS: BUN Creatinine Ratio 14.1 (10-20); Calcium 9.2 mg/dl (8.6-10.3); Chol HDL Ratio 2.2 (0-5); Creatinine Clr Calc Pharmacy 86.3 ml/min; Estimated Average Glucose 111 mg/dl; Hemoglobin A1C 5.5 % (4.5-5.6); Potassium 3.6 mmol/L (3.5-5.1)
[2024-10-19] MEDS: ASPIRIN 81 MG ECTAB PO SCH (08:28)
[2024-10-19] MEDS: CLOPIDOGREL BISULFATE 75 MG TAB PO SCH (08:28)
--- NOTE | 2024-10-19 10:27 | XCELERA ---
[id number]
--- NOTE | 2024-10-19 10:52 | Neurology Consultation ---
Date of Consultation October 19, 2024 Assessment & Plan (1) Embolic stroke: Plan 79-year-old male with acute embolic right hemispheric stroke. He has dysmetria with [id number] on the left, and orbits over the left arm with arm roll. He has a Babinski response for the left foot. He seems somewhat unaware of his left-sided deficits which could indicate an element of left hemineglect. CT angiography of the head and neck are unremarkable. Stroke may be cardioembolic. A previous ECG had revealed premature atrial contractions and frequent PVCs. Occult atrial fibrillation not excluded. Other than a mildly dilated left atrium, his echocardiogram does not reveal an obvious cardioembolic source, no PFO, no ventricular thrombus or large akinetic segment. His lipid panel is normal with an LDL of 64 and an HDL of 71. His elevated HDL may be related to regular wine consumption. He does not have transaminitis or signs of alcohol withdrawal at this time. At this point, I agree with dual antiplatelet therapy, aspirin and Plavix as ordered. The atorvastatin may not be necessary given his lipid panel results as above. I agree with vitamin B1 supplementation as ordered. Monitor for any signs or symptoms of alcohol withdrawal. May allow for permissive hypertension per stroke protocol. If atrial fibrillation is not identified while patient is on telemetry, would recommend further outpatient cardiac Holter monitoring. Patient will need to establish with a primary care physician for ongoing monitoring of cardiovascular risk factors going forward and for arrangement of outpatient cardiac monitoring. He should not require additional outpatient neurology follow-up. History of Present Illness Reason for Consultation: stroke Requesting Physician: Debbie Attending Physician: Luis Daniel Lynn MD History of Present Illness The patient is a 79-year-old left-handed male who presented to the emergency department yesterday with complaint of leg weakness that began the previous evening. He recalls having some difficulty walking but is unable to specify if 1 leg feels weaker than the other. He is aware of some mild weakness of the left upper limb as well. He denies experiencing any change in vision, speech, or swallowing. He denies any headache, vertigo, or dizziness. He is a former smoker, quit last year. He indicates that he drinks alcohol daily, typically wine, several shots of whiskey a day as well, although reports that he cut back over the past year. He denies a history of alcohol withdrawal. He does not have a primary care physician and does not take any prescription medications. He has no known history of stroke or heart disease. A CT of the head revealed atrophy and chronic small vessel ischemic disease, no acute process. A CTA of the head and neck was negative for significant vascular lesion. A brain MRI revealed multiple small acute right hemispheric infarcts, upper right parietal lobe as well as a few small areas of restricted diffusion in the right periventricular white matter and basal ganglia. I did independently review these images. There is no hydrocephalus. There does not appear to be significant focal cerebellar atrophy. There is no abnormal postcontrast enhancement. Allergies Allergy/AdvReac Type Severity Reaction Status Date / Time No Known Allergies Allergy Unverified 10/18/24 10:16 Home Medications Medication Instructions Recorded Confirmed Type ibuprofen 200 mg tablet (Advil) 400 mg PO Q6H PRN Pain 01/05/24 10/18/24 History Patient History Medical History (Updated 10/19/24 @ 10:40 by Goldy King MD) Tobacco use Quit 2023, 75 pack-years History of diverticulitis Surgical History (Updated 10/18/24 @ 11:09 by Eric Lewis MD) History of cataract surgery Bilateral History of appendectomy Social History Smoking Status: Former smoker Tobacco Type: Cigarettes Do You Dip or Chew Tobacco: No; Hx Alcohol Use: Yes Alcohol type: wine Hx Substance Use: No Preferred Language: Singaporean Is Manager Required: No Beliefs That Will Affect Care: None Current Living Situation: Significant Other Other Information That Helps Us Care for You: No Feels Safe at Home: Yes Safety Concerns: Feels Safe At This Time Assistive Devices: None Review of Systems Constitutional: no fever and no chills Eyes: no blind spots and no diplopia Ear, Nose, Mouth, Throat: no hearing loss Respiratory: + cough Cardiovascular: no chest pain and no palpitations Gastrointestinal: no nausea and no vomiting Genitourinary: no dysuria Musculoskeletal: no myalgia Integumentary: no rash and no lesions Neurologic: as per Subjective / HPI and + localized weakness; no loss of sensation, no tremor(s), no headache(s) and no abnormal speech Psychiatric: no depression and no anxiety Hematologic / Lymphatic: no easy bleeding and no easy bruising Exam (Neuro) Constitutional: well developed and well nourished; no acute distress Eyes: normal visual carrero by confrontation, PERRL and EOM intact bilaterally; no nystagmus Neurologic: Oriented to:: Person, Place and Time Memory: Short Term Intact and Remote Intact Attention: Span Intact and Concentration Intact Speech Fluency: negative Dysarthria or Dysfluency Speech Aphasia: negative Aphasia Fund of Knowledge: Current Events, Past History and Vocabulary Cranial Nerves: Normal II, III, IV, , V, VII, VIII, IX, X, XI and XII Motor Strength: Normal Lower Extremities and Normal Upper Extremities Motor Tone: Normal Lower Extremities and Normal Upper Extremities Muscle Bulk/Involuntary Movements: No Involuntary Movements; negative Muscle Atrophy Sensation: Light Touch Intact, Pain/Temperature Intact and Proprioception Intact Coordination: Finger-Nose Abnormal Laterality: Left and Heel-Lal Abnormal Laterality: Left; negative Dysdiadochokinesia Deep Tendon Reflexes: Rt Triceps: 2+, Lt Triceps: 2+, Rt Biceps: 2+, Lt Biceps: 2+, Rt Brachioradialis: 2+, Lt Brachioradialis: 2+, Rt Patellar: 2+, Lt Patellar: 2+, Rt Ankle: 1+ and Lt Ankle: 1+ Special Tests: Babinski Present (L>>R) Results & Data Vital Signs (Past 12 Hours) Vital Signs Temp Pulse Pulse Resp BP Pulse Ox O2 Del Method 10/19/24 09:02 Room Air 10/19/24 07:48 65 10/19/24 07:31 36.4 C L 72 20 171/88 H 92 Room Air 10/19/24 03:22 36.7 C 74 18 171/92 H 90 Room Air 10/18/24 22:43 Room Air Laboratory Results WBC 9.10, hemoglobin 15.8, 8 platelet count 216, sodium 137, potassium 3.6, BUN 13, creatinine 0.92, glucose 93, hemoglobin A1c 5.5, calcium 9.2 magnesium 2 0, AST 19, ALT 18, triglycerides 113, cholesterol 158, LDL 64, VLDL 23, HDL 71, vitamin B12 279, TSH 5.242, free T40.83 Diagnostic Findings An echocardiogram completed this morning reveals normal left ventricular systolic function maladies, mild LVH, EF 60 to 60%, no interatrial shunt, left atrium mildly dilated. Electrocardiogram completed January 05, 2024 revealed sinus rhythm with premature atrial contractions and frequent PVCs. Coding Level of Care Code 41922 INT INP/OBS CARE 3/75MIN Diagnoses Embolic stroke I63.9 Time Spent (min) 90 Comment Total time includes patient contact, chart review, counseling, note preparation
--- NOTE | 2024-10-19 11:31 | Hospitalist Progress Note ---
Date of Service October 19, 2024 Assessment & Plan (1) Embolic stroke: Plan: Acute right hemispheric stroke, possibly embolic Presents with mild left sided weakness MR brain shows evidence of acute stroke started on dual antiplatelets will maintain permissive HTN for 24 hrs ECHO shows only mild left atrial enlargement EKG did not suggest afib, although has had PVC's in the past may need 30 day director of cardiac cath lab outpatient upon d/c (2) Alcohol use disorder: Plan: Monitor for withdrawal - no current signs currently, last alcohol drink 10/17 (3) Elevated blood pressure reading: Plan: Will maintain permissive HTN for the next 24 hrs given acute stroke Plan VTE prophylaxis - Lovenox 40 mg subcu daily Diet - heart healthy Disposition - admit to [facility] Admission and Anticipated Discharge Date Admission Date: October 18, 2024 Subjective patient seen and examined, no new complaints Review of Systems Review of Systems: All systems reviewed are negative, apart from the ones contained in the history. Physical Exam Physical Exam: The patient is awake, alert and oriented 3, well developed and well nourished, normocephalic and atraumatic, lying in bed and in no acute distress. HEENT--PERRL, EOMI, mucous membranes and oropharynx mildly dry Neck--supple. No JVD. No bruits. Thyroid normal, trachea midline, no adenopathy. Heart--normal S1 and S2. No murmurs, rubs or gallops. Lungs--clear bilaterally, no respiratory distress, no accessory muscle use. Abdomen--normal bowel sounds and soft. Extremities--no cyanosis or clubbing. No edema. Dermatologic--normal skin turgor, normal color, no abnormal lymph nodes, no rash. Neurologic--cranial nerves II through XII grossly intact. mild left hemiparesis Rheumatologic--normal range of motion. Psychiatric--normal affect. Results & Data Results & Data Vital Signs (Past 12 Hours) Vital Signs Temp Pulse Pulse Resp BP Pulse Ox O2 Del Method 10/19/24 09:02 Room Air 10/19/24 07:48 65 10/19/24 07:31 97.5 F L 72 20 171/88 H 92 Room Air 10/19/24 03:22 98.1 F 74 18 171/92 H 90 Room Air PG Care Time/CCT Total # of Minutes Spent Total Time Spent with Patient: Total time spent is greater than 50% in coordination of care (as documented) at patient's floor/unit and/or counseling patient: Coding Level of Care Code 07526 SUB INP/OBS CARE 2/35MIN Diagnoses Embolic stroke I63.9 Alcohol use disorder F10.90 Elevated blood pressure reading R03.0 Time Spent (min) 35
--- NOTE | 2024-10-19 12:01 | Electrocardiogram Report ---
Test Reason : Blood Pressure : */* mmHG Vent. Rate : 73 BPM Atrial Rate : 73 BPM P-R Int : 158 ms QRS Dur : 78 ms QT Int : 414 ms P-R-T Axes : 73 55 38 degrees QTcB Int : 456 ms Sinus rhythm with Premature supraventricular complexes and with occasional Premature ventricular comp lexes Otherwise normal ECG When compared with ECG of 05-Jan-2024 10:52, No significant change Confirmed by Tylor Bajwa ([id number]) on 10/19/2024 12:01:18 PM Referred By: REFERRED SELF Confirmed By: Tylor Bajwa
--- NOTE | 2024-10-19 13:08 | Pharmacy Report ---
- Date of Service October 19, 2024 - Pharmacy CVA/TIA Medication Review Medications to Prevent Stroke handout has been added to the patients discharge packet. Antiplatelet(s) * Aspirin 81 mg PO qAM * Clopidogrel 75 mg PO qAM Cholesterol * High intensity statin: atorvastatin 40 mg daily DVT Prophylaxis * Enoxaparin SQ Therapeutic Anticoagulation * No history of Afib/Aflutter * May need registered nurse cardiac as discharge Type 2 Diabetes * Patient does not have T2DM
[2024-10-20 08:03] LABS: Basophils # (auto) 0.03 K/uL (0.00-0.20); Basophils % (auto) 0.3 %; Eosinophils # (auto) 0.06 K/uL (0.00-0.50); Eosinophils % (auto) 0.6 %; Hematocrit (blood only) 40.2 % (42.0-52.0); Hemoglobin 14.6 g/dl (14.0-18.0); Immature Granulocytes # (auto) 0.02 K/uL (0.01-0.20); Immature Granulocytes % (auto) 0.2 %; Lymphocytes # (auto) 1.25 K/uL (1.20-3.40); Lymphocytes % (auto) 13.2 %; Mean Corpuscular Hemoglobin 35.6 pg (25.0-34.0); Mean Corpuscular Hgb Conc 36.3 g/dL (32.0-36.0); Mean Platelet Volume 9.3 fL (9.4-12.4); Monocytes # (auto) 0.68 K/uL (0.11-0.59); Monocytes % (auto) 7.2 %; Neutrophils # (auto) 7.41 K/uL (1.40-6.50); Neutrophils % (auto) 78.5 %; Platelet Count 204 K/uL (130-400); RDW Coefficient of Variation 12.5 % (11.5-14.5); RDW Standard Deviation 45.1 fL (36.4-46.3); White Blood Count 9.45 K/ul (4.8-10.8)
[2024-10-20 08:04] LABS: BUN Creatinine Ratio 17.2 (10-20); Calcium 9.2 mg/dl (8.6-10.3); Creatinine Clr Calc Pharmacy 91.3 ml/min; Potassium 3.7 mmol/L (3.5-5.1)
--- NOTE | 2024-10-20 12:19 | Hospitalist Progress Note ---
Date of Service October 20, 2024 Assessment & Plan (1) Embolic stroke: Plan: Acute right hemispheric stroke, possibly embolic Presents with mild left sided weakness MR brain shows evidence of acute stroke started on dual antiplatelets will maintain permissive HTN for 24 hrs ECHO shows only mild left atrial enlargement EKG did not suggest afib, although has had PVC's in the past may need 30 day child monitor outpatient upon d/c PT/OT (2) Alcohol use disorder: Plan: No evidence of withdrawal CIWA protocol nilson be discontinued (3) Elevated blood pressure reading: Plan: Will maintain permissive HTN for the next 24 hrs given acute stroke Plan VTE prophylaxis - Lovenox 40 mg subcu daily Diet - heart healthy Disposition - auth pending for rehab Admission and Anticipated Discharge Date Admission Date: October 18, 2024 Subjective patient seen and examined, no new complaints Review of Systems Review of Systems: All systems reviewed are negative, apart from the ones contained in the history. Physical Exam Physical Exam: The patient is awake, alert and oriented 3, well developed and well nourished, normocephalic and atraumatic, lying in bed and in no acute distress. HEENT--PERRL, EOMI, mucous membranes and oropharynx mildly dry Neck--supple. No JVD. No bruits. Thyroid normal, trachea midline, no adenopathy. Heart--normal S1 and S2. No murmurs, rubs or gallops. Lungs--clear bilaterally, no respiratory distress, no accessory muscle use. Abdomen--normal bowel sounds and soft. Extremities--no cyanosis or clubbing. No edema. Dermatologic--normal skin turgor, normal color, no abnormal lymph nodes, no rash. Neurologic--cranial nerves II through XII grossly intact. mild left hemiparesis Rheumatologic--normal range of motion. Psychiatric--normal affect. Results & Data Results & Data Vital Signs (Past 12 Hours) Vital Signs Temp Pulse Resp BP Pulse Ox O2 Del Method 10/20/24 11:09 97.5 F L 65 20 180/94 H 91 Room Air 10/20/24 08:00 Room Air 10/20/24 07:46 98.2 F 79 20 160/89 H 90 Room Air 10/20/24 03:37 97.7 F 68 18 154/81 H 91 Room Air PG Care Time/CCT Total # of Minutes Spent Total Time Spent with Patient: Total time spent is greater than 50% in coordination of care (as documented) at patient's floor/unit and/or counseling patient: Coding Level of Care Code 33793 SUB INP/OBS CARE 2/35MIN Diagnoses Embolic stroke I63.9 Alcohol use disorder F10.90 Elevated blood pressure reading R03.0 Time Spent (min) 35
--- NOTE | 2024-10-20 14:08 | Pharmacy Report ---
- Date of Service October 20, 2024 - Pharmacy CVA/TIA Medication Review Medications to Prevent Stroke handout has been added to the patients discharge packet. Antiplatelet(s) * [] * Antiplatelet therapy deferred due to [allergy/intolerance] [serious side effect] [patient/family refusal] [risk for bleeding] [active bleeding] [terminal illness/ASH COLLECTOR] [] Cholesterol * High intensity statin: [atorvastatin 40 mg daily] [atorvastatin 80 mg daily] [rosuvastatin 20 mg daily] * High intensity statin deferred due to [age >75] [no evidence of atherosclerosis (cerebral, coronary, or PVD)] [history of hemorrhagic stroke] [] DVT Prophylaxis * [Heparin SQ] [Enoxaparin SQ] [SCD knee] [SCD thigh] * Pharmacologic and mechanical DVT prophylaxis deferred due to [] Therapeutic Anticoagulation * No history of Afib/Aflutter noted * Hx Afib/Aflutter noted, and patient is currently receiving [] * Hx Afib/Aflutter noted, but anticoagulation is being deferred [until discharge per ] [due to allergy] [due to prior complication] [due to mental status] [due to patient refusal] [due to risk for falls] [due to serious side effect] [due to terminal illness/ASH COLLECTOR] Type 2 Diabetes * Patient does not have T2DM * Patient has T2DM and patient is prescribed [dulaglutide] [liraglutide] [semaglutide] [canagliflozin] [empagliflozin] * Patient has T2DM, but per [], a diabetes medication with proven CVD benefit will be deferred to their outpatient provider due to familiarity with risks/benefits of such therapies. "Medications to prevent stroke" handout has already been added to the patient's discharge packet, which instructs the patient to follow up with their outpatient provider to evaluate which diabetes medication with proven CVD benefit is best for them
[2024-10-21 03:14] VITALS: O2SAT 91
[2024-10-21 06:11] LABS: Basophils # (auto) 0.03 K/uL (0.00-0.20); Basophils % (auto) 0.3 %; Eosinophils % (auto) 1.1 %; Hematocrit (blood only) 41.4 % (42.0-52.0); Hemoglobin 14.8 g/dl (14.0-18.0); Immature Granulocytes # (auto) 0.03 K/uL (0.01-0.20); Immature Granulocytes % (auto) 0.3 %; Lymphocytes # (auto) 1.71 K/uL (1.20-3.40); Lymphocytes % (auto) 18.4 %; Mean Corpuscular Hemoglobin 35.2 pg (25.0-34.0); Mean Corpuscular Hgb Conc 35.7 g/dL (32.0-36.0); Mean Corpuscular Volume 98.3 fL (80.0-100.0); Mean Platelet Volume 9.2 fL (9.4-12.4); Monocytes % (auto) 8.6 %; Neutrophils # (auto) 6.61 K/uL (1.40-6.50); Neutrophils % (auto) 71.3 %; Platelet Count 208 K/uL (130-400); RDW Coefficient of Variation 12.6 % (11.5-14.5); RDW Standard Deviation 45.5 fL (36.4-46.3); Red Blood Count 4.21 M/uL (4.70-6.10); White Blood Count 9.28 K/ul (4.8-10.8)
[2024-10-21 06:28] LABS: BUN Creatinine Ratio 20.7 (10-20); Calcium 9.1 mg/dl (8.6-10.3); Creatinine Clr Calc Pharmacy 90.3 ml/min; Potassium 3.5 mmol/L (3.5-5.1)
[2024-10-21] MEDS ORDERED: STROKE PATIENT DISCHARGE STA (09:38)
[2024-10-21 10:44] VITALS: BP 126/85; RESP 19; TEMP 97.5
--- NOTE | 2024-10-21 10:56 | Discharge Summary ---
Date of Service October 21, 2024 Admission HPI Per Admitting Provider Chetan Valdez is a 79 year old ambidextrous male who presents to the ER with bilateral leg weakness. He does not have a primary care doctor or seek routine care. He started having bilateral leg weakness yesterday at 6 to 8 PM. He thought his legs " fell asleep" last night but was able to make it upstairs however it was not easy. At 4 AM when he got up he could not walk without fall he had a to the bathroom trying to hold onto the sides of the hallway. He feels he is having more of a weakness in his legs rather than coordination problem. No vertigo. No upper extremity weakness or loss of coordination. No changes to vision, speech, hearing. No numbness or pain in his legs. No back pain. No headache, neck stiffness/pain, fever, chills, new respiratory, gastrointestinal or urinary symptoms. He has a chronic productive cough and shortness of breath on exertion which has improved since stopping smoking. He previously smoked 1/2 packs a year for 50 years but quit in the fall 2023. He also drinks alcohol daily, currently 3 glasses of wine per day. He cut back last year and previously was a much heavy drinker with several shots of whiskey a day. He has not had multiple days without alcohol since the . No prior history of withdrawal. He denies any current tremors, anxiety, agitation. His last drink was wine last night. Admission Exam (Per Admitting) Constitutional The patient is awake, alert and oriented 3, well developed and well nourished, normocephalic and atraumatic, lying in bed and in no acute distress. HEENT--PERRL, EOMI, mucous membranes and oropharynx mildly dry Neck--supple. No JVD. No bruits. Thyroid normal, trachea midline, no adenopathy. Heart--normal S1 and S2. No murmurs, rubs or gallops. Lungs--clear bilaterally, no respiratory distress, no accessory muscle use. Abdomen--normal bowel sounds and soft. Extremities--no cyanosis or clubbing. No edema. Dermatologic--normal skin turgor, normal color, no abnormal lymph nodes, no rash. Neurologic--cranial nerves II through XII grossly intact. Rheumatologic--normal range of motion. Psychiatric--normal affect. Discharge Data Consultations 10/18/24 11:00 ED Decision to Admit Stat 10/18/24 21:18 Consult Neurology Routine Hospital Course (1) Embolic stroke: Acute right hemispheric stroke, possibly embolic Presents with mild left sided weakness MRI brain shows evidence of acute stroke started on dual antiplatelets, Plavix for 21 days and Aspirin indefinitely ECHO shows only mild left atrial enlargement EKG did not suggest afib, although has had PVC's in the past may need 30 day telemetry monitor outpatient upon d/c PT/OT (2) Alcohol use disorder: No evidence of withdrawal CIWA protocol nilson be discontinued (3) Elevated blood pressure reading: Permissive HTN has lapsed Will initiate low dose HCTZ Plan VTE prophylaxis - Lovenox 40 mg subcu daily Diet - heart healthy Disposition - auth pending for rehab Coding Level of Care Code 99456 INP/OBS DISCH >30 MIN Diagnoses Embolic stroke I63.9 Alcohol use disorder F10.90 Elevated blood pressure reading R03.0 Time Spent (min) 35
[2024-10-21 14:46] VITALS: PULSE 79
== END 2024-10-21 17:30 | DRG 65 ==
LOC: ED 07:46 → 3N 11:40 → SUATTDRO 11:40 → 3N 15:12 → 2S 22:17